=== PATIENT | female | born 1960 | race Caucasian/White ===

== ENCOUNTER 2018-07-27 12:52 | Day surgery (SDC) | payer OTHER ==
[~2018-07-27] VITALS: Ht 162.6 cm; Wt 80.2 kg
[~2018-07-27 12:52] MED LIST: Ativan1 MG PO; LORA.5 PO; Norco 5-325 Ta1 EACH PO
--- NOTE | 2018-07-27 19:00 | NUR ---
07/27/181899 Viola Aquino LATE ENTRY PT INTO RECLINER SAFELY, STEADY DURING TRANSFER. RATES 8/10 PAIN. SEE VS SHEET FOR DOSAGES/TIMES. PT TOLERATING PO NOURISHMENT WELL AND DENIES NAUSEA. VSS. CALL LIGHT IN REACH, WAITING FOR RIDE TO ARRIVE.
== END 2018-07-27 19:22 | disposition home or self-care (01) ==
LOC: ORSCSDS 12:52
PROVIDERS: Orthopaedic Surgery
PROC: 0PSH04Z Reposition Right Radius with Internal Fixation Device, Open Approach (ICD-10-PCS; principal; 2018-07-27 14:00)
DX: S52.501A Unspecified fracture of the lower end of right radius, initial encounter for closed fracture (principal)
CPT/HCPCS: A9270-GY; C1713; J0690; J1100; J1885; J2250; J2405; J2704; J3010; J3370; J7120

== ENCOUNTER 2018-08-22 11:48 | Emergency (ER) | payer OTHER ==
[~2018-08-22] VITALS: Ht 162.6 cm; Wt 79.4 kg
== END 2018-08-22 13:22 | disposition home or self-care (01) ==
LOC: ER 11:48
DX: Z46.89 Encounter for fitting and adjustment of other specified devices (principal); F41.9 Anxiety disorder, unspecified; E78.00 Pure hypercholesterolemia, unspecified; Z88.0 Allergy status to penicillin; Z88.2 Allergy status to sulfonamides; Z88.8 Allergy status to other drugs, medicaments and biological substances; Z91.048 Other nonmedicinal substance allergy status
CPT/HCPCS: 29125; 99283-25

== ENCOUNTER 2021-03-18 17:44 | Emergency (ER) | payer OTHER ==
[~2021-03-18] VITALS: Ht 162.6 cm; Wt 74.8 kg
[2021-03-18] MEDS ORDERED: Cleocin HCl150 MG PO (19:45)
== END 2021-03-18 20:07 | disposition home or self-care (01) ==
LOC: ER 17:44
DX: S61.011A Laceration without foreign body of right thumb without damage to nail, initial encounter (principal); Z88.0 Allergy status to penicillin; Z88.2 Allergy status to sulfonamides; Z91.048 Other nonmedicinal substance allergy status; Z91.018 Allergy to other foods; W25.XXXA Contact with sharp glass, initial encounter
CPT/HCPCS: 12001; 99282-25